=== PATIENT | male | born 1940 | race Caucasian/White ===

== ENCOUNTER → 2017-02-20 | Outpatient (CLI) | payer MEDICARE ==
[~2017-02-20] MED LIST: ADVAIR 250-501 EACH IH; ASPIR 8181 MG PO; BAYER CHILD81 MG PO; COLCHICINE0.6 MG PO; COLCRYS0.6 MG PO; CRESTOR10 MG PO; DELTASONE1 MG PO; FLOMAX0.4 MG PO; IMDUR30 MG PO; KCL - MICRO-K10 MEQ PO; KLOR-CON M1010 MEQ PO; LEVOTHROID (SY50 MCG PO; NITROGLYCERIN0.4 MG SL; NORVASC2.5 MG PO; PEPCID20 MG PO; PLAVIX75 MG PO; PROLIA60 MG/ML SUB-Q; PROTONIX40 MG PO; RANEXA1000 MG PO; VITAMIN C500 M3 PO; VITAMIN C500 MG PO; VITAMIN D400 UNI2 PO; ZESTRIL2.5 MG PO; ZETIA10 MG PO
[2017-02-20 13:30] LABS: CPK 96 IU/L (35-332)
== END ==
LOC: LNHI 13:11
PROVIDERS: Internal Medicine Cardiovascular Disease
DX: I25.10 Atherosclerotic heart disease of native coronary artery without angina pectoris (principal); R07.9 Chest pain, unspecified

== ENCOUNTER → 2017-02-22 | Outpatient (CLI) | payer MEDICARE ==
--- NOTE | ~2017-02-22 | ESTC ---
Cardiac Perfusion Imaging Demographics Patient Name LORI Maria Gender Male Patient Number [id number] Race Visit Number [id number] [place] [id number] Room Number Accession Number [id number] Height 71 inches Date of 1940 Weight 145 pounds Marlena CARTER Interpreting Anita Gomez Date of study 02/22/2017 Physician Supervising /GRISELP Shayan VALENCIA Technologist Dipesh Danielle Ordering Physician Viola Mendiola MD soils technician Stress ECG Reading Shayan Rashid APRN Nurse China Cronin Physician RN The procedure was explained in detail to the patient. Risks, complications and alternative treatments were reviewed. Written consent was obtained. Medications Reviewed with Patient prior to Procedure. Procedure Procedure Type: Nuclear Stress Test:Exercise, Cardiolite Stress Test Procedure Start time: 02/22/2017 00:00 Indications: Chest pain. Risk Factors The patient risk factors include:prior PCI;peripheral arterial disease, former tobacco use, treated hypercholesterolemia, treated hypertension, family history of premature CAD, dyslipidemia, prior heart failure and prior [place] . Conclusions Summary Perfusion Images: The overall quality of the study is good. Left ventricular cavity is noted to be normal on the stress and normal on the rest images. There is no evidence of abnormal lung activity. The right ventricle is not visualized an cannot be assessed. Impression ECG portion of the exercise stress test is clinically positive for ischemia by diagnostic criteria. DTS is 1.5 and intermediate risk. Myocardial perfusion imaging is mildly abnormal. The images reveal a small size, mild reversible defect in the distal anteroseptal wall consistent with ischemia . Overall left ventricular systolic function was normal. Calculated LVEF is 60% and TID ratio is 1.08. This is an intermediate risk stress test. There are no previous studies for comparison . Stress Protocols Resting ECG Sinus bradycardia Pre-stress physical exam: Patient assessed by Melly JOHN prior to testing. Chest - CTA Cardio - RRR, S1, S2 Peak HR:122 bpm HR response: Appropriate Peak BP:165/50 mmHg BP response: Appropriate Predicted HR: 144 bpm HR/BP product:66673 % of predicted HR: 85 Reason for termination:Target heart rate ECG Findings There is evidence of inducible ischemia at peak stress. Pt did have ST Arrhythmias No rhythm abnormality. Symptoms Shortness of breath. Sharp chest pain substernal during recovery period. Complications Procedure complication: None. Stress Interpretation Patient walked for 9 minutes through 3 stages of Frank Protocol. Appropriate hemodynamic response to exercise. [address] depressions EKG portion is positive for ischemia by diagnostic criteria. The Sneed Treadmill score was 1.5 .This corresponds to a moderate risk stress test. Will correlate with nuclear images. Imaging Results Summed scores - Summed stress score: 8 - Summed rest score: 9 - Summed difference score: -1 Stress ejection Ejection fraction:61 % EDV :105 ml ESV :41 ml Stroke volume :64 ml LV mass :145 gr Imaging Protocols Rest Stress Isotope:Tc99m Sestamibi IV Isotope: Tc99m Sestamibi IV Isotope dose:11.7 mCi Isotope dose:35.3 mCi Date:02/22/2017 07:36 Date:02/22/2017 09:25 Technique: SPECT Technique: Gated Supine SPECT Supine Scan Time:30 minutes post injection Scan Time:45-60 minutes post injection Medical History Admission Data Admission date: 02/22/2017 Admission Time: 07:21 Hospital Status: Outpatient. Signatures dtt: ERVIN TAYLOR dtd: 02/22/17 0000 Physician Self Edit
== END | disposition disaster alternative care site (69) ==
LOC: GRAD 07:15
DX: I25.10 Atherosclerotic heart disease of native coronary artery without angina pectoris (principal); E78.00 Pure hypercholesterolemia, unspecified; E78.5 Hyperlipidemia, unspecified; I25.9 Chronic ischemic heart disease, unspecified; I10 Essential (primary) hypertension; I25.2 Old myocardial infarction; I73.9 Peripheral vascular disease, unspecified; R07.9 Chest pain, unspecified; Z87.891 Personal history of nicotine dependence; Z82.49 Family history of ischemic heart disease and other diseases of the circulatory system
CPT/HCPCS: A9500

== ENCOUNTER 2017-03-20 15:17 | Inpatient (IN) | payer MEDICARE ==
[~2017-03-20] VITALS: Ht 180.3 cm; Wt 68.0 kg
--- NOTE | ~2017-03-20 | ER ---
PATIENT'S NAME: LORI [facility] AGE: 76 Y [address] ROOM: [place] [id number] LOCATION: GPCU ADMIT DATE: 03/20/2017 ER/Outpatient Report DISCHARGE DATE: FAMILY PHYSICIAN: Sterling Erickson MD ATTENDING PHYSICIAN: JAMAL CARTY TIME OF ARRIVAL: 1517 hours. TIME SEEN: 1520 hours. IDENTIFICATION: A 76-year-old male. CHIEF COMPLAINT: Chest pain. HISTORY OF PRESENT ILLNESS: The patient developed substernal chest pain with no radiation at approximately 2 p.m. He took 3 sublingual nitroglycerin at home with no relief of his pain. He did have shortness of breath associated with this and slight nausea, no vomiting, no diaphoresis. The patient does have a history of coronary artery disease, status post previous CABG and stenting. The patient also has a history of third-degree block with sick sinus syndrome and pacemaker. He had a stress test, February 22, which showed mild reversible defect in the distal anteroseptal wall consistent with ischemia. Currently, he rates his pain 4/10 on the pain scale. ALLERGIES: TOPROL. CURRENT MEDICATIONS: 1. Zetia 10 mg daily. 2. Crestor 10 mg daily. 3. Plavix 75 mg daily. 4. KCl 10 mEq daily. 5. Ranexa 1000 mg b.i.d. 6. Amlodipine 2.5 mg daily. 7. Nitro p.r.n. 8. Prednisone 5 mg daily. 9. Colchicine 0.6 mg daily. 10. Levothyroxine 50 mcg daily. 11. Tamsulosin 0.4 mg daily. 12. Famotidine 20 mg daily. PATIENT'S NAME: LORI [facility] AGE: 76 Y [address] ROOM: [address] [address] LOCATION: GPCU ADMIT DATE: 03/20/2017 ER/Outpatient Report DISCHARGE DATE: FAMILY PHYSICIAN: Sterling Erickson MD ATTENDING PHYSICIAN: JAMAL CARTY 13. Advair 250/50 b.i.d. 14. Prolia every 6 months. 15. Aspirin 81 mg daily. 16. Vitamin C 500 mg daily. 17. Vitamin D 400 mg daily. MEDICAL PROBLEMS: Known coronary artery disease, hyperlipidemia, hypertension, pseudogout, hypothyroidism, BPH, gastroesophageal reflux disease, asthma, and osteoporosis. PRIOR SURGERIES: None noted. FAMILY HISTORY: Father with prostate cancer and lung cancer as well as coronary artery disease. Mother with hypertension, congestive heart failure, age 92. SOCIAL HISTORY: The patient is and quit smoking 47 years ago. He is retired, lives in [place]. Alcohol use, occasional. Drug use, denies. REVIEW OF SYSTEMS: All systems reviewed and negative other than what is noted in the HPI; specifically, no blood in his stools, no dark, tarry, or black stools, no history of bleeding diathesis, and no history of blood clots. PHYSICAL EXAMINATION: VITAL SIGNS: Weight 70.3 kg. Blood pressure 152/65, pulse 55, respirations 16, temp 97.7, and sats 100% on room air. GENERAL: A 76-year-old male in no acute distress. HEENT: Head: Normocephalic, atraumatic. Eyes: Pupils are equal and reactive to light and accommodation. Extraocular movements intact. Nose: Mucosa pink. No lesions. Mouth: No lesions. Pharynx benign. NECK: Supple. No lymphadenopathy. LUNGS: Clear to auscultation. HEART: Regular rate and rhythm. ABDOMEN: Soft, nondistended, nontender. SKIN: [place], warm, and dry. No lesions or rashes noted. NEURO: The patient is alert and oriented x4. Cranial nerves 2 through 12 grossly intact. Motor strength 5/5 throughout. Sensation is intact to light touch. No lower extremity edema. No calf tenderness. LABORATORY DATA: Chest x-ray, 1 view, pacemaker in place, no acute findings. Pending Radiology PATIENT'S NAME: COLLETTE SANDOVAL [facility] AGE: 76 Y [address] ROOM: [place] [address] LOCATION: GPCU ADMIT DATE: 03/20/2017 ER/Outpatient Report DISCHARGE DATE: FAMILY PHYSICIAN: Sterling Erickson MD ATTENDING PHYSICIAN: JAMAL CARTY over-read. TSH 1.720, pro-BNP 226. Sodium 142, potassium 4.1, chloride 107, CO2 27, BUN 13, creatinine 1.0, blood sugar 126, magnesium 2.4, CPK 89, CK-MB 1.7, troponin I less than 0.040, D-dimer 0.20. Hemoglobin 12.7, hematocrit 37.2, platelets 132, white count 5.8, normal differential. INR 0.95. EKG sinus bradycardia at 50 beats per minute. No acute ST-elevation or depression. IMPRESSION AND PLAN: 1. Acute coronary syndrome. Plan the patient was given nitroglycerin sublingual and 4 baby aspirin p.o. His symptoms resolved after the nitroglycerin. His blood pressure though did drop to 107 systolic after that so we did not put him on a nitroglycerin drip and he did remain pain free. Heparin was initiated per acute coronary syndrome protocol. The patient will be admitted per the hospitalist. Dr. Carty evaluated the patient in the emergency room and Dr. Rod will provide consultation. 2. Known coronary artery disease with recent slightly abnormal stress test. 3. Thrombocytopenia. 4. Sick sinus syndrome, status post pacemaker. 5. Pseudogout, on chronic steroids. 6. Hypothyroidism. BETTY VIVAR MD CAR/modl /[id number] d: 03/21/170 t: 03/21/17 0650, OUTPATIENT REPORT
--- NOTE | ~2017-03-20 | CATH ---
Cardiac Diagnostic + PCI Report Demographics Patient Name LORI Maria Gender Male Date of 1940 Age 76 year(s) Patient Number [id number] Date of Study 03/21/2017 Visit Number [id number] Room Number [address] [place] [id number] Ht 180.34 cm Wt 180.3 kg Referring Dre Stahl Primary Physician Physician MD Viola Mendiola MD Performing Efstrasonou Secondary Physician Physician Tracy Mendiola MD Diagnostic Efstracheryl Assisting Physician Physician Tracy Mendiola MD Interventional Efstratiou Physician Building Illuminating Engineer Physician Tracy Mendiola MD Findings and Conclusions Diagnostic Findings and Conclusion No significant abnormality by FFR or IVUS of LAD left main Diagnostic Recommendations Maximize medical therapy Interventional Findings and Conclusion No significant angiographic stenosis. Patent previous stents in LAD No significant abnormality by FFR or IVUS of LAD/Left main. Interventional Recommendations Maximize medical therapy Procedure Description The patient was brought to the diagnostic cardiac catheterization-EP laboratory in the fasting, non-sedated state. Informed consent was obtained in the written and verbal form after the risks and benefits were explained. The patient had no further questions and agreed to proceed. The planned puncture-incision site(s) were shaved and prepped with ChloraPrep and draped in the usual sterile manner. Conscious sedation, supplemental oxygen, and pain control medications were delivered by a registered nurse under physician guidance. Surface ECG rhythm, blood pressure measurement, and pulse oximetry were monitored throughout the procedure. Arterial access. The access site was infiltrated with lidocaine. The vessel was entered with the Seldinger technique. A sheath was advanced into the vessel and used for catheter placement. Selective right coronary angiography. A catheter was advanced into the right coronary vessel ostium under fluoroscopic guidance. Contrast was injected by hand. Images were obtained in multiple projections. Selective left coronary angiography. A catheter was advanced into the left coronary vessel ostium under Fluoroscopic guidance. Contrast was injected by hand. Images were obtained in multiple projections. FFR measurement was performed. The vessel was entered with a guiding catheter. The FFR wire was normalized and then advanced across the lesion. Maximum hyperemia was achieved using adenosine. IVUS was performed. The vessel was cannulated. An .014 interventional wire was advanced across the lesson into the distal vessel. The IVUS catheter was advanced into position and imaging was performed. Vessel dimensions were measured. Arterial artery hemostasis was achieved. The patient was transferred to a regular nursing floor via cart accompanied by a nurse. The patient left the laboratory in stable condition. Diagnostic Cath Status: Urgent Procedure Procedure Type Diagnostic procedure:Angiography:, Coronary Angios w/[facility] PCI procedure:Additional Imaging:, FFR/iFR:, Initial Vessel, IVUS:, Initial Vessel Indications: Unstable angina. The procedure was explained in detail to the patient. Risks, complications and alternative treatments were reviewed. Written consent was obtained. Medications Reviewed with Patient prior to Procedure. Angiographic Findings Dominance: Right Cardiac Arteries and Lesion Findings LMCA: Normal (0% Stenosis). LAD: Abnormal.There is a previous stent on Prox LAD Proximal subsection. There is a previous stent on Prox LAD Proximal subsection. Lesion on Prox LAD: 20% stenosis . Devices used - Whisper Wire .014 x 190. Number of passes: 1. - Verrata Pressure Wire. Number of passes: 1. - [place] IVUS catheter. Number of passes: 1. LCx: Normal (0% Stenosis). RCA: Normal (0% Stenosis). Lesion on R PDA: 30% stenosis . Lesion on 1st RPL: 30% stenosis . Coronary Tree Procedure Data Procedure Date Date: 03/21/2017Start: 10:46 AM Entry Locations - Retrograde Percutaneous access was performed through the Right Radial artery (Primary location). A 6 Fr sheath was inserted. Hemostasis was successfully obtained using Mechanical Compression. Closure Comments: 10cc air in band my Ashtyn. Procedure Medications Order and Administration + + + +--------+ !Time !Medication !Dosage !Route ! + + + +--------+ !03/21/2017 10:39 AM !Versed !1 mg !I.V. ! + + + +--------+ !03/21/2017 10:41 AM !Fentanyl !50 mcg !I.V. ! + + + +--------+ !03/21/2017 10:50 AM !Oxygen !2 l/min !NC ! + + + +--------+ !03/21/2017 11:07 AM !Heparin (ACC_3) !4000 units !I.V. ! + + + +--------+ !03/21/2017 11:10 AM !Adenosine (IV) !140 mcg/kg/min ! ! + + + +--------+ !03/21/2017 11:13 AM !Adenosine (IV) ! ! ! + + + +--------+ !03/21/2017 11:17 AM !Heparin (ACC_3) !2000 units !I.V. ! + + + +--------+ !03/21/2017 11:24 AM !Oxygen ! !NC ! + + + +--------+ Devices Used - A6 Fr. BS JR 4 Diag. Catheterwas used for:Right coronary angiography. - A6 Fr. XBLAD 3.5 SH Guide Catheterwas used for:Left coronary angiography. Contrast Material - Isovue [id number] ml Fluoroscopy Time: Diagnostic: 9:48 minutes. Total: 9:48 minutes. Fluoroscopy Dose: Diagnostic: 717 mGy. Total: 717 mGy. Estimated Blood Loss: 5 ml. Medical History Performed Procedures and Imaging Results - No ACC stress or imaging studies were performed. Allergies - Other:(torpol XL). - Dairy products. - Other:(BB blkrs, lactose). Risk Factors The patient risk factors include:prior PCI on 10/22/2002;chronic lung disease, last creatinine: 1 mg/dl, creatinine clearance: 160.27 ml/min, dyslipidemia and former tobacco use. Admission Data Admission Date: 03/20/2017 Admission Time: 04:42 PM Admit Source: Emergency department Insurance Payors: Medicare. Admission Medications + +------+-------+ + + + + !Medication !Dosage!Times !Last !Last !Administered !Comments ! ! ! !Per Day!Delivery !Delivery ! ! ! ! ! ! !Date !Time ! ! ! + +------+-------+ + + + + !Aspirin ! ! ! ! !Yes ! ! !(any) ! ! ! ! ! ! ! + +------+-------+ + + + + !Clopidogrel! ! ! ! !Yes ! ! + +------+-------+ + + + + Clinical Evaluation Leading to Procedure - The patient's CAD presentation was assessed as: Unstable angina. - The patient's anginal syndrome during the past two weeks was assessed as: Class IV according to the [place] Cardi[employer] Classification System (CCS). Snapshots Hemodynamics Condition: Rest O2 Consumption: Estimated: 311.43Heart Rate: 58 bpm Pressures (mmHg) +-----+ + !Site !Pressure ! +-----+ + !AO !100/50 (72) ! +-----+ + Shunts Oxygen Values O2 Capacity 172.72 O2 Consumption 311.43 Signatures dtt: Mingo Rod dtd: 03/21/17 1046 Physician Self Edit
--- NOTE | ~2017-03-20 | DS ---
PATIENT'S NAME: COLLETTE SANDOVAL [facility] AGE: 76 Y [address] ROOM: [address] [place], [place] [address] LOCATION: GPCU ADMIT DATE: 03/20/2017 Discharge Summary DISCHARGE DATE: 03/22/2017 FAMILY PHYSICIAN: Sterling Erickson MD ATTENDING PHYSICIAN: Joseph Carty FINAL DIAGNOSES: 1. Chest pain. 2. Known coronary artery disease with previous interventions. 3. Chronic obstructive pulmonary disease. 4. Thrombocytopenia. PROCEDURE: He had a heart catheterization with Dr. Rod on March 21, 2017. REASON FOR ADMISSION: The patient presented to the emergency room with chest pain. It was concerned that it was cardiac chest pain. LABORATORY DATA: On admit: Sodium 142, potassium 4.1, chloride 107, CO2 of 27, BUN 13, creatinine 1. Alkaline phosphatase 47, AST 20, ALT 31, magnesium 2.4. His cardiac enzymes were all negative. ProBNP was 226. White blood cell count on admission was 5.8, hemoglobin 12.7, hematocrit 37.2, platelet count 132, PTT 24, pro-time 10, INR 0.95. X-RAY DATA: Chest x-ray on admission did not show any evidence of acute cardiopulmonary process. Ultrasound of the abdomen did not show any evidence of cholelithiasis or evidence of acute cholecystitis. He had multiple renal cysts. HOSPITAL COURSE: The patient was admitted with a diagnosis of chest pain. The patient did have a history of known coronary artery disease. He was admitted on the acute coronary protocol. Dr. Rod, his primary stores clerk, is asked to see him. The patient was taken to the laborer livestock, and at that time, there were no culprit lesions found. Please see Dr. Rod's dictated catheterization note for details. Decision was made to place the patient on Imdur. On further discussion, there was some concern this may be coming from his gastrointestinal tract. He was started on Protonix, and an ultrasound was done. The ultrasound was done on the morning of discharge did not show any evidence of cholelithiasis or acute cholecystitis. It was felt that the patient could be discharged to home. The plan was to discharge him on a proton pump inhibitor and have him follow up with his primary care provider. He had been seen by Dr. Plaza in consultation previously. DISCHARGE INSTRUCTIONS: He is discharged to home. He will see Dr. Erickson PATIENT'S NAME: COLLETTE SANDOVAL [facility] AGE: 76 Y [address] ROOM: [address] [place], [place] [address] LOCATION: GPCU ADMIT DATE: 03/20/2017 Discharge Summary DISCHARGE DATE: 03/22/2017 FAMILY PHYSICIAN: Sterling Erickson MD ATTENDING PHYSICIAN: Joseph Carty on Wednesday March 29, 2017, at 1:[address] Rod on April at 2 p.m. MEDICATIONS: 1. Ascorbic acid 500 mg daily. 2. Aspirin 81 mg daily. 3. Plavix 75 mg daily. 4. Colchicine 0.6 mg daily. 5. Levothyroxine 50 mcg daily. 6. Nitroglycerin 0.4 mg sublingual take as needed. 7. Potassium 10 mEq daily. 8. Prednisone 3 mg daily. 9. Ranexa 1000 mg twice daily. 10. Crestor 10 mg daily. 11. Advair 250/50 one puff twice daily. 12. Zetia 10 mg daily. 13. Flomax 0.4 mg at bedtime. 14. Pepcid 20 mg in the morning. 15. Prolia once every 6 months. 16. Imdur 30 mg daily. A script for 30 was given with 1 refill. 17. Protonix 40 mg daily. He was given 14 pills. OVERALL PROGNOSIS: At discharge was good. I did leave a message to speak with Dr. Erickson regarding this discharge. ARTHUR CAPELLAN MD LAW/modl /[id number] CC: MD Mingo Johnson MD d: 03/23/17 0347 t: 04/12/17 1832, DISCHARGE SUMMARY
--- NOTE | ~2017-03-20 | HP ---
PATIENT'S NAME: [facility] AGE: 76 Y [address] ROOM: [place] [address] LOCATION: GPCU ADMIT DATE: 03/20/2017 History & Physical DISCHARGE DATE: FAMILY PHYSICIAN: Sterling Erickson MD ATTENDING PHYSICIAN: JAMAL KHAN DATE OF SERVICE: CHIEF COMPLAINT: Chest pain. HISTORY OF PRESENT ILLNESS: A 76-year-old gentleman with a past medical history of coronary artery disease and sick sinus syndrome, presented to the emergency department with a chest pain, which started a month early today located in the middle of the chest sharp in character, grasping in nature, nonradiating, nonalleviating. Factors including 3 tablets of nitroglycerin not associated with breathing or chest movement. He denied having any association of the chest pain with diaphoresis, anxiety, but did endorse having some shortness of breath. On further inquiry, he denied having any dizziness, any trouble with the eyes, any trouble swallowing, any PND or orthopnea, leg swelling, abdominal pain. No constipation, diarrhea, or any muscle weakness. REVIEW OF SYSTEMS: All other systems reviewed and were negative except what is mentioned in the HPI. ALLERGIES: NO KNOWN DRUG ALLERGIES. PAST MEDICAL HISTORY: 1. Coronary artery disease with multiple interventions done. Unstable angina. 2. Third-degree block, status post sick sinus syndrome. 3. COPD. 4. Pseudogout. 5. Hypothyroidism. MEDICATIONS: Being reconciled right now. FAMILY HISTORY: Family history is positive for cancer in father including lung carcinoma as well as prostate cancer. Also, had coronary artery disease. PATIENT'S NAME: [facility] AGE: 76 Y [address] ROOM: [place] [address] LOCATION: GPCU ADMIT DATE: 03/20/2017 History & Physical DISCHARGE DATE: FAMILY PHYSICIAN: Sterling Erickson MD ATTENDING PHYSICIAN: JAMAL KHAN SOCIAL HISTORY: , quit smoking 47 years ago. PHYSICAL EXAMINATION: VITAL SIGNS: 140/76, 52, 16, afebrile, saturating 94% on room air. GENERAL: No acute distress. Alert and oriented x3. HEENT: Head: Atraumatic, normocephalic. Eyes: Nonicteric. No pallor. Oropharynx: Moist mucous membranes. CARDIOVASCULAR: S1, S2. No murmurs, gallops, or rubs. LUNGS: Clear to auscultation bilaterally. ABDOMEN: Soft, nontender, nondistended. Bowel sounds are present. EXTREMITIES: No clubbing, cyanosis, or edema. PSYCH: Normal affect, mood, and speech. NEURO: Cranial nerves 2 through 12 intact. No motor or sensory deficit. LABORATORY DATA: Chest x-ray done in the emergency department did not reveal any acute changes in the chest. EKG done showed sinus bradycardia without any acute ST-T wave changes. All the lab work including initial troponins are negative so far. ASSESSMENT: 1. Unstable angina. 2. Coronary artery disease with multiple interventions in the past. 3. Heart failure with preserved ejection fraction, compensated sick sinus syndrome, status post pacemaker. 4. Pseudogout, on chronic steroids and colchicine. 5. Hypothyroidism. 6. Chronic obstructive pulmonary disease. PLAN: We are going to admit this patient. Start him on ACS protocol including aspirin and Plavix, which is already on home. Heparin drip per Dr. Acevedo from Cardiology. Possible heart cath in the morning. DuoNeb p.r.n. for COPD. N.p.o. midnight. We will continue rest of the home medications. The patient is full code. MD NOBLE COLLINS/lauren /[id number] D: 057 T: 929 HISTORY & PHYSICAL
[~2017-03-20 15:17] MED LIST changes: -PROLIA60 MG/ML SUB-Q; -PROTONIX40 MG PO
[2017-03-20 15:37] LABS: BASOPHIL % 0.3 %; EOSINOPHIL # 0.1 K/uL (0.0-0.5); EOSINOPHIL % 1.2 %; HEMATOCRIT 37.2 % (37.0-53.0); HEMOGLOBIN 12.7 g/dL (11.0-16.0); IMMATURE GRANULOCYTE % 0.3 %; LYMPHOCYTE # 1.1 K/uL (0.8-4.0); LYMPHOCYTE % 19.1 %; MCH 33.3 pg (27.0-34.0); MCHC 34.1 gm/dL (32.0-36.5); MCV 97.6 fl (83.0-98.0); MONOCYTE # 0.7 K/uL (0.0-1.0); MONOCYTE % 11.7 %; MPV 9.6 fl (9.4-12.4); NEUTROPHIL # (ANC) 3.9 K/uL (1.4-9.0); NEUTROPHIL % 67.4 %; NRBC % 0 /100WBC (0-0.00); PLATELET COUNT 132 K/uL (150-450); RBC 3.81 M/uL (3.50-5.50); RDW-CV 12.8 % (11.9-14.6); WBC 5.8 K/uL (4.0-11.0)
[2017-03-20 15:49] LABS: INR - (THERAPEUTIC) 0.95 (0.92-1.07); PTT 24 SECONDS (25-32)
[2017-03-20 15:55] LABS: ALBUMIN 3.5 gm/dL (3.5-5.0); ALK PHOS 47 IU/L (33-138); ALT 31 IU/L (12-78); ANION GAP 12.1 (10.0-19.0); AST 20 IU/L (10-40); BLOOD UREA NITROGEN 13 mg/dL (6-24); CALCIUM 8.2 mg/dL (8.5-10.5); CHLORIDE 107 mMol/L (96-110); CO2 27 mMol/L (22-32); CPK 89 IU/L (35-332); ESTIMATED GFR (MDRD EQUATION) > 60; MAGNESIUM 2.4 mg/dL (1.8-2.6); POTASSIUM 4.1 mMol/L (3.7-5.1); SODIUM 142 mMol/L (135-145); TOTAL BILIRUBIN 0.5 mg/dL (0.0-1.5); TOTAL PROTEIN 6.2 g/dL (6.0-8.4)
[2017-03-20] MEDS ORDERED: PROLIA60 MG/ML SUB-Q (19:25)
[2017-03-21 04:53] LABS: BASOPHIL % 0.5 %; EOSINOPHIL # 0.2 K/uL (0.0-0.5); EOSINOPHIL % 3.3 %; HEMATOCRIT 35.8 % (37.0-53.0); HEMOGLOBIN 12.1 g/dL (11.0-16.0); IMMATURE GRANULOCYTE % 0.2 %; LYMPHOCYTE # 1.6 K/uL (0.8-4.0); LYMPHOCYTE % 28.3 %; MCH 33.4 pg (27.0-34.0); MCHC 33.8 gm/dL (32.0-36.5); MCV 98.9 fl (83.0-98.0); MONOCYTE # 0.7 K/uL (0.0-1.0); MONOCYTE % 12.1 %; MPV 10.2 fl (9.4-12.4); NEUTROPHIL # (ANC) 3.2 K/uL (1.4-9.0); NEUTROPHIL % 55.6 %; NRBC % 0 /100WBC (0-0.00); PLATELET COUNT 120 K/uL (150-450); RBC 3.62 M/uL (3.50-5.50); RDW-CV 12.9 % (11.9-14.6); WBC 5.7 K/uL (4.0-11.0)
--- NOTE | 2017-03-21 04:53 | NUR ---
Pt a/o x4. vss on RA, afebrile. sba. Heparin gtt to R wrist, NS at 100ml/hr to r wrist. New IV started in LFA. Clipping done. Pt stated chest pain was 8-9/10 at one point in the night but he did not let me know. stated it subsided on its own. no pain meds given throughout shift. Plan: [facility] at 0900
[2017-03-21 05:07] LABS: BLOOD UREA NITROGEN 12 mg/dL (6-24); CHLORIDE 111 mMol/L (96-110); CO2 26 mMol/L (22-32); CREATININE 0.8 mg/dL (0.6-1.3); ESTIMATED GFR (MDRD EQUATION) > 60; SODIUM 144 mMol/L (135-145)
--- NOTE | 2017-03-21 15:47 | NUR ---
Introduced self and role of care management to patient, and daughter. He [place] [facility] with his . He states that he is able to do all his own ADL's. His is able to assist as needed. He plans on returning home on discharge. They deny any needs at this time. Will continue to follow.
--- NOTE | 2017-03-21 19:04 | NUR ---
Significant Event:Heart cath today. No interventions. Right radial approach. arm band intact. Took after 4 hours and wrist started to bleed. Replaced arm band and releasing gradually. LS clear, abd soft, passing flatus. HX of smoking. VSS. Follow up: U/S of gallbladder tomorrow. NPO after midnight.
--- NOTE | 2017-03-22 04:31 | NUR ---
Significant events: Pt A/Ox3. VSS. No complaints of pain. Up 1PA. R) radial band removed at HS, no bleeding or hematoma noted. Slept most of shift. NPO since midnight for liver ultrasound today.
[2017-03-22] MEDS ORDERED: IMDUR30 MG PO (12:14)
[2017-03-22] MEDS ORDERED: PROTONIX40 MG PO (12:15)
--- NOTE | 2017-03-22 13:00 | NUR ---
D/C ORDERS RECIEVED. REVIEWED WITH THE PATIENT AND HIS SPOUSE ALL D/C INFORMATION INCLUDING MEDICATIONS, FOLLOW-UP APPTS, INSTRUCTIONS, AND CARES. NEELA PRINTOUTS GIVEN ON NEW MEDS AND RADIAL ACCESS SITE CARES. PIV D/C'D AND CATHETER INTACT. IS UP TO DATE ON PNEUMONIA VACCINE. RT)RADIAL SITE WITH BAND-AID AND COBAN IS SOFT AND C/D/I. TAKEN VIA W/C AND TRANSPORT TEAM TO THE FRONT ENTRANCE OF THE HOSPITAL AND HIS SPOUSE TO DRIVE HIM HOME.
== END 2017-03-22 13:00 | disposition disaster alternative care site (69) | DRG 286 ==
LOC: GMED 15:17 → GPCU 16:42
PROVIDERS: Family Medicine; ADMIT Internal Medicine
PROC: 4A023N7 Measurement of Cardiac Sampling and Pressure, Left Heart, Percutaneous Approach (ICD-10-PCS; principal; 2017-03-21)
PROC: B211YZZ Fluoroscopy of Multiple Coronary Arteries using Other Contrast (ICD-10-PCS; 2017-03-21)
DX: I25.110 Atherosclerotic heart disease of native coronary artery with unstable angina pectoris (principal); I50.33 Acute on chronic diastolic (congestive) heart failure; D69.6 Thrombocytopenia, unspecified; J44.9 Chronic obstructive pulmonary disease, unspecified; E03.9 Hypothyroidism, unspecified; Z87.891 Personal history of nicotine dependence; Z95.0 Presence of cardiac pacemaker; M11.20 Other chondrocalcinosis, unspecified site; Z79.82 Long term (current) use of aspirin; Z79.52 Long term (current) use of systemic steroids
CPT/HCPCS: C1753; C1769; C1887; C1894; J0153; J1644; J2250; J3010; J7030

== ENCOUNTER → 2017-07-15 | Outpatient (CLI) | payer MEDICARE ==
[~2017-07-15] MED LIST changes: +PROLIA60 MG/ML SUB-Q; +PROTONIX40 MG PO
== END | disposition disaster alternative care site (69) ==
LOC: GRAD 11:39
DX: M54.2 Cervicalgia (principal); M43.5X2 Other recurrent vertebral dislocation, cervical region